=== PATIENT | female | born 1950 | race Caucasian/White ===

== ENCOUNTER → 2016-08-28 | Outpatient (CLI) | payer OTHER ==
[~2016-08-28] MED LIST: ASPIRIN81 M1 PO; BUMETANIDE1 MG PO; CALCIUM 600 + D PO; COUMADIN PO; LOSARTAN POTASS25 MG PO; MULTI-VITAMIN1 TAB PO; PRAVASTATIN SOD40 MG PO; SYNTHROID0.2 MG PO; TOPROL XL PO; VITAMIN D400 UNI2 PO
--- NOTE | ~2016-08-28 | MY11 ---
[facility] A Service of [facility] RADIOLOGY TEXT RESULTS PATIENT: MERRILL SIMMONS LOCATION: [facility] : 54 UNIT #: [id number] AGE: [address]: Nik Iqbal MD SEX: F ORDER DR: [id number] [address] [id number] MR#: [id number] Acc #: [id number] NAME: MERRILL SIMMONS : 1950 SEX: F STUDY DATE/TIME: 08/28/2016 8:42 UNIT: [facility] ROOM: STUDY DESCRIPTION: MY Mammogram Screening Dig Prabhakar Attending Physician: Nik Iqbal M.D. Referring Physician: Nik Iqbal M.D. Ordering Physician: Nik Iqbal M.D. Primary Care Physician: Nik Iqbal M.D. MEDICAL IMAGING REPORT This report is preliminary unless electronic signature is present. EXAM Digital screening mammogram with CAD INDICATION Routine screening. PROCEDURE Bilateral CC and MLO views and a left XCCL view obtained on a digital mammography unit. FDA-approved CAD device was utilized. COMPARISON 02/07/2015, 05/15/2013, 02/22/2012. FINDINGS Scattered fibroglandular density. No suspicious calcification. There is a 6 mm focal asymmetry in the anterior subareolar left breast, not clearly seen on priors. IMPRESSION Incomplete mammogram. Recommend evaluation of a 6 mm focal asymmetry in the left breast with a true lateral view and spot compression views. If an abnormality persists, ultrasound is suggested at that time. Patients over the age of 40 are entered into a reminder system with target due date for the next mammogram. A result letter will also be sent to the patient. BIRADS: 0 Incomplete: Need additional imaging evaluation and/or prior mammograms for comparison Dictated by... [facility] A Service [facility] RADIOLOGY TEXT RESULTS PATIENT: MERRILL SIMMONS LOCATION: [facility] : 54 UNIT #: [id number] AGE: [address]: Nik Iqbal MD SEX: F ORDER DR: Frank Fung M.D. THIS IS AN ELECTRONICALLY VERIFIED REPORT Frank Fung M.D. at 08/29/2016 7:08 AM YUMI/dorys TD: 08/28/2016 11:16 JOB #: [id number] MEDICAL IMAGING REPORT
== END | disposition home or self-care (01) ==
LOC: SMAM 07:50
DX: Z12.31 Encounter for screening mammogram for malignant neoplasm of breast (principal); N64.89 Other specified disorders of breast; Z88.8 Allergy status to other drugs, medicaments and biological substances
CPT/HCPCS: G0202